=== PATIENT | male | born 1985 | race African-American/Black ===

== ENCOUNTER 2019-05-18 20:11 | Emergency (ER) | payer MEDICAID ==
[~2019-05-18] VITALS: Ht 185.4 cm; Wt 109.0 kg
[~2019-05-18 20:11] MED LIST: HYDR-4383 PO; HYDR25TA4 PO; LISI10TA4 PO
[2019-05-18 20:21] VITALS: BP 181/126
== END 2019-05-18 22:08 | disposition home or self-care (01) ==
LOC: ER 20:12
DX: B07.9 Viral wart, unspecified (principal); I10 Essential (primary) hypertension; Z79.899 Other long term (current) drug therapy
CPT/HCPCS: 11440; 99284

== ENCOUNTER 2020-01-05 04:02 | Emergency (ER) | payer MEDICAID, OTHER ==
[~2020-01-05] VITALS: Ht 185.4 cm; Wt 109.1 kg
[2020-01-05] MEDS ORDERED: ipratropium/albuterol 3ml nebule NEB ONE (04:05)
[2020-01-05] MEDS ORDERED: dexamethasone 4mg tablet PO ONE ×2 (04:10→04:20)
[2020-01-05] MEDS ORDERED: PRED20TA PO (04:26)
[2020-01-05] MEDS ORDERED: ALBU18HF2 INH (04:26)
--- NOTE | 2020-01-05 04:32 | NUR ---
BARBER ISSUED PER MD FOR USE WITH HOME MDI.
[2020-01-05 04:40] VITALS: BP 175/128
== END 2020-01-05 04:59 | disposition home or self-care (01) ==
LOC: ER 04:03
DX: J45.909 Unspecified asthma, uncomplicated (principal); I10 Essential (primary) hypertension; F17.210 Nicotine dependence, cigarettes, uncomplicated; Z79.899 Other long term (current) drug therapy
CPT/HCPCS: 94640; 94760; 99283; 99406

== ENCOUNTER 2020-01-22 22:46 | Inpatient (IN) | payer MEDICAID, OTHER ==
[~2020-01-22] VITALS: Ht 185.4 cm; Wt 90.9 kg
[~2020-01-22 22:46] MED LIST changes: +ALBU18HF2 INH; +PRED20TA PO
[2020-01-22] MEDS ORDERED: normal saline 1000ML IV soln IVB ONE (23:25)
[2020-01-22 23:53] LABS: BASOPHILS % (AUTO) 0.4 % (0-1); EOSINOPHILS % (AUTO) 0.4 % (0-6); HEMATOCRIT 39.9 % (42.0-52.0); HEMOGLOBIN 12.8 g/dl (14.0-17.9); LYMPHOCYTES % (AUTO) 7.6 % (21-51); MEAN CORPUSCULAR HEMOGLOBIN 28.9 PG (27.0-31.0); MEAN CORPUSCULAR VOLUME 90.4 FL (78-98); MEAN PLATELET VOLUME 8.2 FL (7.4-10.4); MONOCYTES # (AUTO) 1.1 X10'3 (0-0.9); MONOCYTES % (AUTO) 8.5 % (2-12); NEUTROPHILS # (AUTO) 10.4 X10'3 (1.8-7.7); NEUTROPHILS % (AUTO) 83.1 % (42-75); PLATELET COUNT 291 X10'3 (140-440); RED BLOOD COUNT 4.41 X10'6 (4.70-6.10); RED CELL DISTRIBUTION WIDTH 17.3 % (11.5-14.5); WHITE BLOOD COUNT 12.5 X10'3 (4.5-11.0)
[2020-01-22 23:58] LABS: D-DIMER 0.99 MG/L FEU (0-0.50)
[2020-01-23 00:01] LABS: ALANINE AMINOTRANSFERASE 63 U/L (12-78); ALBUMIN 2.5 G/DL (3.4-5.0); ALBUMIN/GLOBULIN RATIO 0.7 (1.1-1.5); ALKALINE PHOSPHATASE 74 IU/L (46-116); ANION GAP 12 (8-16); ASPARTATE AMINO TRANSFERASE 47 U/L (10-37); BILIRUBIN,TOTAL 1.1 MG/DL (0.1-1.0); BLOOD UREA NITROGEN 20 MG/DL (7-18); BUN/CREATININE RATIO 12.3 (5.4-32.0); CALCIUM 8.7 MG/DL (8.5-10.1); CHLORIDE 104 MMOL/L (99-107); CREATININE 1.63 MG/DL (0.60-1.10); GLUCOSE 107 MG/DL (70-104); POTASSIUM 4.2 MMOL/L (3.5-5.1); SODIUM 139 MMOL/L (135-145); TOTAL CARBON DIOXIDE 23.2 MMOL/L (24-32); eGFR 60 ML/MIN
[2020-01-23] MEDS ORDERED: iohexol 350MG/ML 100ml bottle IV ONE (00:40)
[2020-01-23] MEDS ORDERED: labetalol 20mg/4ml (5mg/ml) syringe IV ONE ×2 (00:55→02:55)
[2020-01-23] MEDS ORDERED: furosemide 10 MG/1 ML 10ml inj IV ONE (00:55)
[2020-01-23 01:01] LABS: URINE AMPHETAMINE SCREEN NEGATIVE (Neg); URINE BARBITUATE SCREEN NEGATIVE (Neg); URINE BENZODIAZEPINES SCREEN NEGATIVE (Neg); URINE CANNABINOID SCREEN NEGATIVE (Neg); URINE COCAINE SCREEN POSITIVE (Neg); URINE METHADONE SCREEN NEGATIVE (Neg); URINE OPIATE SCREEN NEGATIVE (Neg); URINE PHENCYCLIDINE SCREEN NEGATIVE (Neg)
--- NOTE | 2020-01-23 02:05 | NUR ---
PATIENT'S [facility]ER[facility] [phone]
[2020-01-23] MEDS ORDERED: NO HOME MEDS (02:21)
[2020-01-23] MEDS ORDERED: piperacillin/tazo 3.375gm/50ml 50 ML IV ONE ×2 (03:20→04:20)
[2020-01-23] MEDS ORDERED: ondansetron/PF 4mg/2ml inj IV PRN (03:45)
[2020-01-23] MEDS ORDERED: acetaminophen 325mg tablet PO PRN (03:45)
[2020-01-23] MEDS ORDERED: magnesium hydroxide 30ml (MOM) UD suspension PO PRN (03:45)
[2020-01-23] MEDS ORDERED: mag hydrox/Alum hydrox/simeth 30ml oral suspension PO PRN (03:45)
[2020-01-23] MEDS ORDERED: temazepam 15mg capsule PO ONE (04:05)
[2020-01-23] MEDS ORDERED: vancomycin/NS 1 GM ADD-VANTAGE 250 ML IV ONE (04:20)
--- NOTE | 2020-01-23 06:38 | NUR ---
report called to Regla burgos
--- NOTE | 2020-01-23 06:51 | NUR ---
Patient in room ED 4. I have received report from Shawnee VILLANUEVA and had the opportunity to ask questions and assume patient care.
[2020-01-23 07:15] VITALS: BP 148/101
--- NOTE | 2020-01-23 07:15 | NUR ---
Patient arrived from ER via wheelchair Alert and orientated, call light is within reach. Patient is up ad nannette, no signs of distress. Patients vitals temp 98, bp 148/107, O2 room air 96%, HR 108, RR 18, pain 0/10. MRSA swab sample collected. Two RN skin check completed with no wounds noted.
[2020-01-23] MEDS ORDERED: carvedilol 6.25mg tablet PO SCH (08:00)
[2020-01-23] MEDS: CefTRIAXone/D5W-Rocephin 1gm 50 ML IV SCH (09:10)
[2020-01-23] MEDS: heparin, porcine 5000 units/ml vial SQ SCH ×2 (09:12→19:49)
[2020-01-23 11:00] VITALS: BP 159/109
[2020-01-23] MEDS: clindamycin 150mg capsule PO SCH ×3 (11:25→19:49)
[2020-01-23] MEDS: lisinopril 5mg tablet PO SCH (14:38)
[2020-01-23] MEDS: furosemide 40mg/4ml inj IV SCH (14:40)
[2020-01-23 15:00] VITALS: BP 153/96
[2020-01-23 18:00] VITALS: BP 149/99
--- NOTE | 2020-01-23 18:00 | NUR ---
Patient in room PCU 3026. I have received report from Odalys Patel RN and had the opportunity to ask questions and assume patient care.
--- NOTE | 2020-01-23 18:06 | NUR ---
[place] documentation: I have reviewed and agree with all interventions, assessments performed and documented by KAY Valdes.
--- NOTE | 2020-01-23 18:06 | NUR ---
Problems reprioritized. Patient report given, questions answered & plan of care reviewed with KAY Deleon. Patient watching tv, eating dinner independently. All needs met at this time.
--- NOTE | 2020-01-23 18:06 | NUR ---
[place] Medication Administration: For this medication-pass time frame, all medication were reviewed, dispensed, administered and documented per hospital policy by KAY Valdes.
[2020-01-23] MEDS: lactobacillus rhamnosus 10,000 MMU CELLS/CAPSULE PO SCH (19:49)
[2020-01-23] MEDS: carVEDilol 3.125mg tablet PO SCH (19:50)
[2020-01-23 22:00] VITALS: BP 131/95
[2020-01-23] MEDS: HYDROcodone/acetaminophen 5mg/325mg tablet PO PRN (23:23)
[2020-01-24 02:00] VITALS: BP 144/111
[2020-01-24] MEDS: clindamycin 150mg capsule PO SCH ×4 (03:02→20:56)
--- NOTE | 2020-01-24 06:46 | NUR ---
Problems reprioritized. Patient report given, questions answered & plan of care reviewed with Phil VILLANUEVA.
--- NOTE | 2020-01-24 06:51 | NUR ---
Patient in room PCU 3026. I have received report from Adrienne VILLANUEVA and had the opportunity to ask questions and assume patient care.
[2020-01-24 07:00] VITALS: BP 162/112
[2020-01-24 07:11] LABS: BASOPHILS # (AUTO) 0.1 X10'3 (0-0.2); BASOPHILS % (AUTO) 0.8 % (0-1); EOSINOPHILS # (AUTO) 0.2 X10'3 (0-0.9); EOSINOPHILS % (AUTO) 1.6 % (0-6); HEMATOCRIT 40.8 % (42.0-52.0); HEMOGLOBIN 13.2 g/dl (14.0-17.9); LYMPHOCYTES % (AUTO) 20.5 % (21-51); MEAN CORPUSCULAR HEMOGLOBIN 29.6 PG (27.0-31.0); MEAN CORPUSCULAR HGB CONC 32.4 g/dL (33.0-36.5); MEAN CORPUSCULAR VOLUME 91.3 FL (78-98); MEAN PLATELET VOLUME 8.9 FL (7.4-10.4); MONOCYTES # (AUTO) 1.1 X10'3 (0-0.9); MONOCYTES % (AUTO) 11.4 % (2-12); NEUTROPHILS # (AUTO) 6.3 X10'3 (1.8-7.7); NEUTROPHILS % (AUTO) 65.7 % (42-75); PLATELET COUNT 290 X10'3 (140-440); RED BLOOD COUNT 4.47 X10'6 (4.70-6.10); RED CELL DISTRIBUTION WIDTH 17.4 % (11.5-14.5); WHITE BLOOD COUNT 9.6 X10'3 (4.5-11.0)
[2020-01-24 07:28] LABS: ALANINE AMINOTRANSFERASE 67 U/L (12-78); ALBUMIN 2.2 G/DL (3.4-5.0); ALBUMIN/GLOBULIN RATIO 0.6 (1.1-1.5); ALKALINE PHOSPHATASE 71 IU/L (46-116); ANION GAP 10 (8-16); ASPARTATE AMINO TRANSFERASE 45 U/L (10-37); BILIRUBIN,TOTAL 0.9 MG/DL (0.1-1.0); BLOOD UREA NITROGEN 24 MG/DL (7-18); BUN/CREATININE RATIO 16.8 (5.4-32.0); CHLORIDE 104 MMOL/L (99-107); CREATININE 1.43 MG/DL (0.60-1.10); GLUCOSE 98 MG/DL (70-104); POTASSIUM 4.2 MMOL/L (3.5-5.1); SODIUM 136 MMOL/L (135-145); TOTAL CARBON DIOXIDE 22.3 MMOL/L (24-32); TOTAL PROTEIN 5.8 G/DL (6.4-8.2); eGFR 69 ML/MIN
[2020-01-24] MEDS: furosemide 40mg/4ml inj IV SCH (08:36)
[2020-01-24] MEDS: heparin, porcine 5000 units/ml vial SQ SCH ×2 (08:37→20:51)
[2020-01-24] MEDS: carVEDilol 3.125mg tablet PO SCH (08:38)
[2020-01-24] MEDS: lactobacillus rhamnosus 10,000 MMU CELLS/CAPSULE PO SCH ×2 (08:38→20:56)
[2020-01-24] MEDS: HYDROcodone/acetaminophen 5mg/325mg tablet PO PRN ×2 (08:38→20:55)
[2020-01-24] MEDS: lisinopril 5mg tablet PO SCH (08:38)
[2020-01-24] MEDS: CefTRIAXone/D5W-Rocephin 1gm 50 ML IV SCH (08:38)
--- NOTE | 2020-01-24 09:09 | NUR ---
stopped Rocephin IV
[2020-01-24] MEDS: spironolactone 25 MG tablet PO SCH (09:20)
[2020-01-24 09:23] LABS: TROPONIN I 0.04 NG/ML (0.0-0.05)
[2020-01-24 11:00] VITALS: BP 144/97
[2020-01-24 15:00] VITALS: BP 140/82
--- NOTE | 2020-01-24 16:07 | NUR ---
Loraine Lyn. [id number]. Patient would like to be discharged but wants to get meds. He says there is issues at home he needs to handle with his and landlord. Charly saw him and agreed to medical management. Please advise. Phil [phone]
--- NOTE | 2020-01-24 16:07 | NUR ---
Paged Dr. Cole. Loraine Lyn. [id number]. Patient would like to be discharged but wants to get meds. He says there is issues at home he needs to handle with his and landlord. Charly saw him and agreed to medical management. Please advise. Phil [phone]
--- NOTE | 2020-01-24 16:22 | NUR ---
Paged Dr. Cole. Loraine Lyn. [id number]. After speaking more about the importance of him getting his prescriptions, he is reluctantly willing to stay. TY. Phil [phone]
[2020-01-24 18:00] VITALS: BP 153/106
--- NOTE | 2020-01-24 18:16 | NUR ---
Problems reprioritized. Patient report given, questions answered & plan of care reviewed with Litzy VILLANUEVA.
--- NOTE | 2020-01-24 18:25 | NUR ---
Patient in room PCU 3026. I have received report from KULDEEP VILLANUEVA and had the opportunity to ask questions and assume patient care.
[2020-01-24] MEDS: carVEDilol 12.5mg tablet PO SCH (20:55)
[2020-01-24 22:00] VITALS: BP 124/101
[2020-01-25 02:00] VITALS: BP 145/115
[2020-01-25] MEDS: clindamycin 150mg capsule PO SCH ×2 (02:00→07:51)
[2020-01-25 06:00] VITALS: BP 144/109
[2020-01-25 06:16] LABS: BASOPHILS # (AUTO) 0.1 X10'3 (0-0.2); BASOPHILS % (AUTO) 1.1 % (0-1); EOSINOPHILS # (AUTO) 0.1 X10'3 (0-0.9); EOSINOPHILS % (AUTO) 1.4 % (0-6); HEMATOCRIT 38.1 % (42.0-52.0); HEMOGLOBIN 12.2 g/dl (14.0-17.9); LYMPHOCYTES # (AUTO) 1.6 X10'3 (1.1-4.8); LYMPHOCYTES % (AUTO) 20.9 % (21-51); MEAN CORPUSCULAR HEMOGLOBIN 29.4 PG (27.0-31.0); MEAN CORPUSCULAR HGB CONC 32.2 g/dL (33.0-36.5); MEAN CORPUSCULAR VOLUME 91.5 FL (78-98); MEAN PLATELET VOLUME 8.9 FL (7.4-10.4); MONOCYTES # (AUTO) 0.9 X10'3 (0-0.9); MONOCYTES % (AUTO) 11.9 % (2-12); NEUTROPHILS % (AUTO) 64.7 % (42-75); PLATELET COUNT 309 X10'3 (140-440); RED BLOOD COUNT 4.16 X10'6 (4.70-6.10); RED CELL DISTRIBUTION WIDTH 17.2 % (11.5-14.5); WHITE BLOOD COUNT 7.7 X10'3 (4.5-11.0)
--- NOTE | 2020-01-25 06:27 | NUR ---
Patient in room PCU 3026. I have received report from Rocael VILLANUEVA and had the opportunity to ask questions and assume patient care.
[2020-01-25 06:30] LABS: ALANINE AMINOTRANSFERASE 64 U/L (12-78); ALBUMIN 2.1 G/DL (3.4-5.0); ALBUMIN/GLOBULIN RATIO 0.6 (1.1-1.5); ALKALINE PHOSPHATASE 64 IU/L (46-116); ANION GAP 5 (8-16); ASPARTATE AMINO TRANSFERASE 38 U/L (10-37); BILIRUBIN,TOTAL 0.5 MG/DL (0.1-1.0); BLOOD UREA NITROGEN 20 MG/DL (7-18); BUN/CREATININE RATIO 12.7 (5.4-32.0); CALCIUM 8.3 MG/DL (8.5-10.1); CHLORIDE 104 MMOL/L (99-107); CREATININE 1.58 MG/DL (0.60-1.10); GLUCOSE 101 MG/DL (70-104); POTASSIUM 4.1 MMOL/L (3.5-5.1); SODIUM 137 MMOL/L (135-145); TOTAL CARBON DIOXIDE 27.6 MMOL/L (24-32); TOTAL PROTEIN 5.6 G/DL (6.4-8.2); eGFR 62 ML/MIN
--- NOTE | 2020-01-25 06:32 | NUR ---
Problems reprioritized. Patient report given, questions answered & plan of care reviewed with KULDEEP VILLANUEVA.
[2020-01-25] MEDS: spironolactone 25 MG tablet PO SCH (07:50)
[2020-01-25] MEDS: lactobacillus rhamnosus 10,000 MMU CELLS/CAPSULE PO SCH (07:50)
[2020-01-25] MEDS: carVEDilol 12.5mg tablet PO SCH (07:51)
[2020-01-25] MEDS: lisinopril 5mg tablet PO SCH (07:51)
[2020-01-25] MEDS: furosemide 40mg/4ml inj IV SCH (07:52)
[2020-01-25] MEDS: heparin, porcine 5000 units/ml vial SQ SCH (07:52)
[2020-01-25] MEDS ORDERED: SPIR25TA PO (09:54)
[2020-01-25] MEDS ORDERED: CARV-50 PO (09:54)
[2020-01-25] MEDS ORDERED: FURO20TA4 PO (09:54)
[2020-01-25] MEDS ORDERED: LISI-642 PO (09:54)
[2020-01-25 11:00] VITALS: BP 121/81
--- NOTE | 2020-01-25 11:42 | NUR ---
Patient safe for discharge per MD orders, discharge instructions reviewed, prescriptions called into [facility], belongings collected and sent with patient, walked to front door, picked up by family. Patient does not have PCP or [facility]. Will find PCP in next week and get referral to [facility].
== END 2020-01-25 11:20 | disposition home or self-care (01) | DRG 194 ==
LOC: ER 22:46 → ED HOLD 01-23 03:41 → UNDOADMIN 01-23 03:48 → ED HOLD 01-23 03:48 → PCU 3S 01-23 07:22 → ED HOLD 01-23 07:22
PROVIDERS: ADMIT Internal Medicine; ATTEND Internal Medicine
PROC: B32T1ZZ Computerized Tomography (CT Scan) of Left Pulmonary Artery using Low Osmolar Contrast (ICD-10-PCS; principal; 2020-01-23)
PROC: B3201ZZ Computerized Tomography (CT Scan) of Thoracic Aorta using Low Osmolar Contrast (ICD-10-PCS; 2020-01-23)
PROC: B32S1ZZ Computerized Tomography (CT Scan) of Right Pulmonary Artery using Low Osmolar Contrast (ICD-10-PCS; 2020-01-23)
DX: I11.0 Hypertensive heart disease with heart failure (principal); N17.9 Acute kidney failure, unspecified; I42.7 Cardiomyopathy due to drug and external agent; I42.9 Cardiomyopathy, unspecified; I16.1 Hypertensive emergency; J45.909 Unspecified asthma, uncomplicated; F17.200 Nicotine dependence, unspecified, uncomplicated; I50.23 Acute on chronic systolic (congestive) heart failure; T50.905A Adverse effect of unspecified drugs, medicaments and biological substances, initial encounter; Y92.89 Other specified places as the place of occurrence of the external cause; Z82.49 Family history of ischemic heart disease and other diseases of the circulatory system; Z03.818 Encounter for observation for suspected exposure to other biological agents ruled out; F14.90 Cocaine use, unspecified, uncomplicated
CPT/HCPCS: 36415; 71045; 71275; 80053; 80305; 82948; 83605; 83880; 84145; 84484; 85025; 85379; 87040; 87081; 87635; 93005; 93306; 96361; 96365; 96375; 96376; 99285; G0378; J0696; J1644; J1940; J2543; J3370; J3490; J7030; Q9967

== ENCOUNTER 2020-03-07 14:48 | Emergency (ER) | payer MEDICAID, OTHER ==
[~2020-03-07] VITALS: Ht 185.4 cm; Wt 118.2 kg
[~2020-03-07 14:48] MED LIST changes: -ALBU18HF2 INH; +CARV-50 PO; +FURO20TA4 PO; -HYDR-4383 PO; -HYDR25TA4 PO; +LISI-642 PO; -LISI10TA4 PO; -PRED20TA PO; +SPIR25TA PO
[2020-03-07 15:53] LABS: BASOPHILS % (AUTO) 0.7 % (0-1); EOSINOPHILS # (AUTO) 0.1 X10'3 (0-0.9); EOSINOPHILS % (AUTO) 1.3 % (0-6); HEMATOCRIT 37.7 % (42.0-52.0); HEMOGLOBIN 11.9 g/dl (14.0-17.9); LYMPHOCYTES # (AUTO) 1.1 X10'3 (1.1-4.8); LYMPHOCYTES % (AUTO) 16.1 % (21-51); MEAN CORPUSCULAR HEMOGLOBIN 27.3 PG (27.0-31.0); MEAN CORPUSCULAR HGB CONC 31.4 g/dL (33.0-36.5); MEAN CORPUSCULAR VOLUME 86.7 FL (78-98); MONOCYTES # (AUTO) 0.7 X10'3 (0-0.9); MONOCYTES % (AUTO) 10.6 % (2-12); NEUTROPHILS % (AUTO) 71.3 % (42-75); PLATELET COUNT 292 X10'3 (140-440); RED BLOOD COUNT 4.35 X10'6 (4.70-6.10); RED CELL DISTRIBUTION WIDTH 17.9 % (11.5-14.5)
[2020-03-07 16:07] LABS: ALANINE AMINOTRANSFERASE 38 U/L (12-78); ALBUMIN 2.6 G/DL (3.4-5.0); ALBUMIN/GLOBULIN RATIO 0.7 (1.1-1.5); ALKALINE PHOSPHATASE 72 IU/L (46-116); ANION GAP 8 (8-16); ASPARTATE AMINO TRANSFERASE 25 U/L (10-37); BILIRUBIN,TOTAL 1.3 MG/DL (0.1-1.0); BLOOD UREA NITROGEN 12 MG/DL (7-18); BUN/CREATININE RATIO 8.2 (5.4-32.0); CALCIUM 8.3 MG/DL (8.5-10.1); CHLORIDE 104 MMOL/L (99-107); CREATININE 1.46 MG/DL (0.60-1.10); GLUCOSE 108 MG/DL (70-104); POTASSIUM 4.1 MMOL/L (3.5-5.1); SODIUM 139 MMOL/L (135-145); TOTAL CARBON DIOXIDE 27.3 MMOL/L (24-32); TOTAL PROTEIN 6.6 G/DL (6.4-8.2); eGFR 68 ML/MIN
--- NOTE | 2020-03-07 16:48 | NUR ---
discussed covid history with pt. pt reports that both him and his were tested two weeks ago, and both were negative. pt denies any recent contact with a covid positive person. denies any hx of fever.
--- NOTE | 2020-03-07 17:29 | NUR ---
PT CALLED TO CLARIFY THAT SHE IS NEG FOR COVID. SHE STATES SHE GETS TESTED EVERY WEEK FOR HER WORK. SHE ALSO WANTED THE MD TO KNOW PTS PMD HAS BEEN TRYING TO GET HIS BP, HR, AND EDEMA UNDER CONTROL WITH MED CHANGES OVER THE PAST 1.5 MONTHS AND PTS CONTINUES TO HAVE SWELLING AND SOB. PTS CAN BE REACHED AT [phone]. DR ROSS NOTIFED
[2020-03-07] MEDS ORDERED: furosemide 40mg/4ml inj IV ONE (18:05)
[2020-03-07] MEDS ORDERED: cloNIDine 0.1 mg tablet PO ONE (18:05)
[2020-03-07] MEDS ORDERED: furosemide 10 MG/1 ML 10ml inj IV ONE (18:05)
[2020-03-07] MEDS ORDERED: FURO-149 PO (18:08)
[2020-03-07] MEDS ORDERED: CLON-529 PO (18:08)
[2020-03-07 18:15] VITALS: BP_DIAS 147
[2020-03-07] MEDS ORDERED: BUDE10.2 INH (18:44)
[2020-03-07 18:46] VITALS: BP_SYST 184
== END 2020-03-07 18:48 | disposition home or self-care (01) ==
LOC: ER 14:50
DX: I42.9 Cardiomyopathy, unspecified (principal); R60.9 Edema, unspecified; I50.9 Heart failure, unspecified; I11.0 Hypertensive heart disease with heart failure; J45.909 Unspecified asthma, uncomplicated; Z72.89 Other problems related to lifestyle; Z79.899 Other long term (current) drug therapy
CPT/HCPCS: 36415; 71045; 80053; 84484; 85025; 93005; 96374; 99285; J1940